=== PATIENT | male | born 2000 | race Caucasian/White ===

== ENCOUNTER 2023-04-20 10:49 | Emergency (ER) | payer BC, SELFPAY ==
[2023-04-20] VITALS (11 sets, daily range): BP systolic 107–118; BP diastolic 56–76; PULSE 57–80; RESP 18–20; TEMP 36.7; O2SAT 97–100; BMI 17.4
[2023-04-20] MEDS: ONDANSETRON 2 MG/ML inj 4 MG IVP (12:15)
[2023-04-20] MEDS: LACTATED RINGERS 1000 ML 1,000 ML IV (12:15)
--- NOTE | 2023-04-20 12:15 | ED.GENADULT ---
HPI - General Adult General Date Seen: 04/20/23 Chief complaint: Nausea/Vomiting Stated complaint: Vomiting, sore throat Time Seen by Provider: 04/20/23 11:08 Source: patient Mode of arrival: ambulatory Limitations: no limitations History of Present Illness HPI narrative: Patient is a 22-year-old male presenting to the emergency department for sore throat, nausea. Patient states for the past week he has been feeling fatigued with a sore throat and nausea. He last vomited last night. Has not had any vomiting today. Has been eating and drinking but does state he has been eating small meals because he feels like that is all he can handle. He is gluten free due to his celiac disease. States that last fever was 4 days ago and was 101. 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 He has been having some mild shortness of breath but states is only while he is coughing. Is wondering if he coughed up a blood clot but also admits prior to that he was eating chili and he states could of and a small amount of emesis. Denies chest pain, constipation, headache, vision changes, numbness. Does admit to epigastric abdominal pain that has been going for the past few days. Also states she has intermittent diarrhea but states that is not abnormal for him due to his celiac disease. Related Data Previous Rx's Medication Instructions Recorded ondansetron 4 mg disintegrating 4 mg PO Q6H #20 tabs 04/20/23 tablet Allergies Allergy/AdvReac Type Severity Reaction Status Date / Time No Known Drug Allergies Allergy Verified 04/20/23 11:03 Review of Systems Status of ROS: Reports: 10 or more systems reviewed and unremarkable except as noted in History and below Exam Narrative: Exam Narrative: Const: Well-nourished, Well-developed, in mild distress Eyes: PERRL, no conjunctival injection, and symmetrical lids ENMT: Atraumatic external nose and ears. Moist mucous membranes. Uvula midline, erythematous oropharynx, tonsils not visualized Neck: Symmetric, trachea midline, No thyromegaly. CVS: RRR, No murmurs or gallops. Peripheral pulses 2+ and equal in all extremities RESP: Unlabored respiratory effort. Clear to auscultation bilaterally. GI: Nontender/Nondistended, No rebound or guarding. MSK:Extremities w/o deformity, Normal Active ROM Skin: Warm, Dry. No rashes or lesions. Neuro: Normal Muscle tone, No focal neurological deficits. Psych: Awake, Alert, & Oriented x3. Appropriate mood and affect. Const: Vital Signs, click to edit/add: Vital Signs - 24 hr 04/20/23 10:59 Temperature 98.1 F Pulse Rate [Pulse Oximeter] 80 Respiratory Rate 20 Blood Pressure [Ri ght Upper Arm] 118/76 Pulse Oximetry 99 Oxygen Delivery Me thod Room Air Course Vital Signs Vital signs: Initial Vital Signs Temperature 98.1 F 04/20/23 10:59 Temperature Source Temporal Artery Scan 04/20/23 10:59 Pulse Rate 80 04/20/23 10:59 Pulse Rhythm Regular 04/20/23 10:59 Respiratory Rate 20 04/20/23 10:59 Blood Pressure 118/76 04/20/23 10:59 Blood Pressure Mean 90 04/20/23 10:59 Blood Pressure Position Sitting 04/20/23 10:59 Pulse Oximetry 99 04/20/23 10:59 Oxygen Delivery Method Room Air 04/20/23 10:59 Vital Signs Temperature 98.1 F 04/20/23 10:59 Pulse Rate 80 04/20/23 10:59 Respiratory Rate 20 04/20/23 10:59 Blood Pressure 118/76 04/20/23 10:59 Pulse Oximetry 99 04/20/23 10:59 Oxygen Delivery Method Room Air 04/20/23 10:59 Temperature 98.1 F 04/20/23 10:59 Pulse Rate 80 04/20/23 10:59 Respiratory Rate 20 04/20/23 10:59 Blood Pressure 118/76 04/20/23 10:59 Pulse Oximetry 99 04/20/23 10:59 Oxygen Delivery Method Room Air 04/20/23 10:59 Medical Decision Making [facility] Narrative Medical decision making narrative: Patient is 22-year-old male presents emergency department for viral symptoms. Symptoms are gone for the past week. Has had some nausea and vomiting. No fever for 4 days and has been having a sore throat. Isn't have any difficulty breathing. At this point it seems unlikely he has a deep neck space abscess. And imaging is not necessary. We will check in for mono, strep, COVID/flu. Will also order CBC and BMP. Patient states he is feeling low dehydrated and a L of lactated Ringer's was given and Zofran for his nausea. Lab work all returned showing no concerning abnormalities. COVID/flu, mono, strep were all negative. States his sore throat feels much better at this time and rates as a 3/10. His nausea is also much improved. He most likely has a viral syndrome and can be discharged home. To be given Zofran for his nausea. He is agreeable to this plan. Lab Data Labs: Lab Results 04/20/23 04/20/23 04/20/23 Range/Units 12:10 12:11 13:00 WBC 7.06 (4.50-11.00) K/uL RBC 5.08 (4.30-5.90) m/uL Hgb 15.9 (13.5-17.5) gm/dL Hct 45.0 (37.0-53.0) % MCV 89 (80-100) fL MCH 31 (26-34) pg MCHC 35 (32-36) gm/dL RDW Coeff of Joi 11.3 L (11.5-15.5) % Plt Count 238 (140-440) K/uL Neut % (Auto) 60.7 (42.0-72.0) % Lymph % (Auto) 25.4 (20-44) % Hubbard % (Auto) 9.2 (0.0-11.0) % Eos % (Auto) 3.4 (0.0-7.0) % Baso % (Auto) 0.6 (0.0-3.0) % Neut # (Auto) 4.29 (1.7-7.0) K/uL Lymph # (Auto) 1.79 (0.90-2.90) K/uL Hubbard # (Auto) 0.60 (0.00-0.90) K/UL Eos # (Auto) 0.24 (0.00-0.50) K/uL Baso # (Auto) 0.04 (0.00-0.30) K/uL Abs Immat Gran (auto) 0.05 (0.00-0.30) K/uL Imm/Tot Granulo (auto) 0.7 % Sodium 142 (135-149) mmol/L Potassium 4.1 (3.6-5.1) mmol/L Chloride 106 (96-114) mmol/L Carbon Dioxide 25 (20-32) mmol/L Anion Gap 11 (7-15) mEq/L BUN 11 (5-24) mg/dL Creatinine 0.7 (0.5-1.5) mg/dL Estimated Creat Clear 135.00 Estimated GFR 135 ml/min Glucose 96 (60-115) mg/dL Calcium 9.9 (8.4-10.6) mg/dL Total Bilirubin 0.7 (0.1-1.5) mg/dL AST 24 (12-35) U/L ALT 15 (4-50) U/L Alkaline Phosphatase 67 (40-150) U/L Total Protein 8.2 (6.0-8.3) g/dL Albumin 4.7 (3.3-5.0) g/dL Lipase 56 (23-300) U/L SARS-CoV-2 (PCR) Negative SARS-CoV-2 (Negative) Monoscreen Negative (Negative) Influenza Type A (PCR) Negative PCR FLU A (Negative) Influenza Type B (PCR) Negative PCR FLU B (Negative) RSV (PCR) Negative PCR RSV (Negative) Group A Strep Rapid Cancelled Group A Strep DNA NOT DETECTED (Not Detectd) Discharge Plan Discharge Clinical Impression: Viral syndrome Patient Disposition: Home, Self-Care Condition: Stable Instructions: Viral Syndrome (ED) Additional Instructions: Follow-up with your primary care provider. Return for new or worsening symptoms. Take Tylenol or ibuprofen pain. Uses Zofran as needed for nausea. Prescriptions: New ondansetron 4 mg tablet,disintegrating 4 mg PO Q6H Qty: 20 0RF Follow Up/Referrals: Ellen Lorenzo PA-C [Primary Care Provider] - Stand Alone Forms: MyHealth Info Instructions
[2023-04-20 12:25] LABS: Basophils Absolute Auto 0.04 K/uL (0.00-0.30); Basophils Percent Auto 0.6 % (0.0-3.0); Eosinophils Absolute Auto 0.24 K/uL (0.00-0.50); Eosinophils Percent Auto 3.4 % (0.0-7.0); Hemoglobin* 15.9 gm/dL (13.5-17.5); Immature Granulocytes Abs Auto 0.05 K/uL (0.00-0.30); Immature Granulocytes Pct Auto 0.7 %; Lymphocytes Absolute Auto 1.79 K/uL (0.90-2.90); Lymphocytes Percent Auto 25.4 % (20-44); Mean Corpuscular HGB Conc 35 gm/dL (32-36); Mean Corpuscular Hemoglobin 31 pg (26-34); Mean Corpuscular Volume 89 fL (80-100); Monocytes Percent Auto 9.2 % (0.0-11.0); Neutrophils Absolute Auto 4.29 K/uL (1.7-7.0); Neutrophils Percent Auto 60.7 % (42.0-72.0); Platelet Count* 238 K/uL (140-440); RDW Coefficient of Variation % 11.3 % (11.5-15.5); Red Blood Count 5.08 m/uL (4.30-5.90); White Blood Count* 7.06 K/uL (4.50-11.00)
[2023-04-20 12:31] LABS: Slide Review Reflex No
[2023-04-20 12:40] LABS: Albumin* 4.7 g/dL (3.3-5.0); Chloride* 106 mmol/L (96-114)
[2023-04-20 12:41] LABS: Potassium* 4.1 mmol/L (3.6-5.1); Sodium* 142 mmol/L (135-149)
[2023-04-20 12:43] LABS: Alkaline Phosphatase* 67 U/L (40-150); Anion Gap 11 mEq/L (7-15); Aspartate Amino Transferase* 24 U/L (12-35); Bilirubin Total* 0.7 mg/dL (0.1-1.5); Blood Urea Nitrogen* 11 mg/dL (5-24); Carbon Dioxide* 25 mmol/L (20-32); Creatinine* 0.7 mg/dL (0.5-1.5); Estimated Glomerular Filt Rate 135 ml/min; Lipase* 56 U/L (23-300); Total Protein* 8.2 g/dL (6.0-8.3)
[2023-04-20 12:44] LABS: Alanine Aminotransferase* 15 U/L (4-50); Calcium* 9.9 mg/dL (8.4-10.6); Glucose* 96 mg/dL (60-115)
[2023-04-20 12:45] LABS: Mono Screen* Negative (Negative)
[2023-04-20 13:13] LABS: Strep A DNA Probe* NOT DETECTED (Not Detectd)
[2023-04-20 13:23] LABS: PCR FLU A Negative PCR FLU A (Negative); PCR FLU B Negative PCR FLU B (Negative); PCR RSV Negative PCR RSV (Negative)
[2023-04-20 13:26] LABS: SARS PCR* Negative SARS-CoV-2 (Negative)
== END 2023-04-20 14:08 | disposition home or self-care (01) ==
PROVIDERS: Emergency Provider Student in an Organized Health Care Education/Training Program; PCP Physician Assistant Medical
DX: B34.9 Viral infection, unspecified (principal)
CPT/HCPCS: 36415; 80053; 83690; 85025; 86308; 87631; 87651; 96374; 99283; J2405; J7120

== ENCOUNTER 2023-11-09 10:56 | Outpatient (CLI) | payer OTHER, SELFPAY | END 2023-11-09 10:57 | disposition home or self-care (01) | LOC: NFLDUCREF 10:58 | PROVIDERS: PCP Physician Assistant Medical; Visit Provider Nurse Practitioner Family | DX: R07.89 Other chest pain (principal) | CPT/HCPCS: 84484 ==